=== PATIENT | male | born 1935 | race Two or more races ===

== ENCOUNTER 2020-04-03 09:56 | Inpatient (IN) | payer MEDICARE, OTHER ==
[~2020-04-03] VITALS: Ht 167.6 cm; Wt 66.5 kg
[2020-04-03 10:10] VITALS: BP 157/65
--- NOTE | 2020-04-03 10:10 | NUR ---
ED Nurse Note: Pt walked into ED using cane. Interpretor Keeley ID [id number] used. Per interpretor pt states Dr. Torrez asked pt to come in for labs for his prostate surgery scheduled for tommorrow 04/04/20." No complaints of pain, breathing even and unlabored, vital signs stable as documented.
--- NOTE | 2020-04-03 10:39 | Emergency Room Report ---
History of Present Illness General Chief Complaint: General Complaint Source: Patient Present Illness HPI This patient has a history of bladder cancer and his primary urologist is Dr. Naqvi. The patient is planned for surgical resection. He presents secondary to needing to be evaluated prior to his surgery early tomorrow. The patient himself has no specific complaints at this time. Allergies: Coded Allergies: No Known Allergies (Unverified , 04/03/20) COVID-19 Screening Contact w/high risk pt: No Experienced COVID-19 symptoms?: No COVID-19 Testing performed THEATRICAL VARIETY AGENT: No Patient History Past Medical History: see triage record, DM, HTN, other - bladder ca Social History: Denies: smoking, alcohol use, drug use Reviewed Nursing Documentation: PMH: Agreed; PSxH: Agreed Nursing Documentation-PMH Past Medical History: No History, Except For Hx Hypertension: Yes Hx Diabetes: Yes Review of Systems All Other Systems: negative except mentioned in HPI Physical Exam Vital Signs Date Time Temp Pulse Resp B/P (MAP) Pulse Ox O2 Delivery O2 Flow Rate FiO2 04/03/20 09:58 97.2 64 18 162/64 (96) 96 Room Air Sp02 EP Interpretation: reviewed, normal General Appearance: no apparent distress, alert, GCS 15, non-toxic Head: normocephalic, atraumatic Eyes: bilateral eye normal inspection, bilateral eye PERRL ENT: hearing grossly normal, normal pharynx, no angioedema, normal voice Neck: full range of motion, supple/symm/no masses Respiratory: chest non-tender, lungs clear, normal breath sounds, no respiratory distress, no retraction, no accessory muscle use, speaking full sentences Cardiovascular #1: regular rate, rhythm, no edema Gastrointestinal: normal bowel sounds, non tender, soft, non-distended, no guarding, no rebound Rectal: deferred Musculoskeletal: back normal, normal range of motion, gait/station normal, non- tender Neurologic: alert, motor strength/tone normal, oriented x3, sensory intact, responsive, speech normal Psychiatric: judgement/insight normal, memory normal, mood/affect normal, no suicidal/homicidal ideation Skin: no rash, normal color Medical Decision Making Diagnostic Impression: Primary Impression: Bladder cancer Additional Impressions: Hypernatremia Dehydration ER Course This patient has known bladder cancer and is admitted for surgical resection and further evaluation by urology. The patient underwent basic labs, chest x- ray and EKG for screening purposes for surgery. The patient had lab findings consistent with mild dehydration. He was given IV fluids. The patient remained stable in the emergency department and is admitted for further evaluation and treatment by urology and internal medicine. Laboratory Tests Test 04/03/20 10:45 04/03/20 11:50 White Blood Count 7.3 K/UL (4.8-10.8) Red Blood Count 4.55 M/UL (4.70-6.10) L Hemoglobin 13.3 G/DL (14.2-18.0) L Hematocrit 39.7 % (42.0-52.0) L Mean Corpuscular Volume 87 FL (80-99) Mean Corpuscular Hemoglobin 29.1 PG (27.0-31.0) Mean Corpuscular Hemoglobin Concent 33.3 G/DL (32.0-36.0) Red Cell Distribution Width 11.9 % (11.6-14.8) Platelet Count 272 K/UL (150-450) Mean Platelet Volume 5.8 FL (6.5-10.1) L Neutrophils (%) (Auto) 71.6 % (45.0-75.0) Lymphocytes (%) (Auto) 17.9 % (20.0-45.0) L Monocytes (%) (Auto) 7.9 % (1.0-10.0) Eosinophils (%) (Auto) 1.2 % (0.0-3.0) Basophils (%) (Auto) 1.3 % (0.0-2.0) Prothrombin Time 10.6 SEC (9.30-11.50) Prothrombin Time INR 1.0 (0.9-1.1) Activated Partial Thromboplast Time 25 SEC (23-33) Sodium Level 148 MMOL/L (136-145) H 147 MMOL/L (136-145) H Potassium Level 5.7 MMOL/L (3.5-5.1) H 5.4 MMOL/L (3.5-5.1) H Chloride Level 111 MMOL/L (98-107) H 110 MMOL/L (98-107) H Carbon Dioxide Level 27 MMOL/L (21-32) 28 MMOL/L (21-32) Anion Gap 10 mmol/L (5-15) 9 mmol/L (5-15) Blood Urea Nitrogen 11 mg/dL (7-18) 11 mg/dL (7-18) Creatinine 1.5 MG/DL (0.55-1.30) H 1.4 MG/DL (0.55-1.30) H Estimated Glomerular Filtration Rate 44.7 mL/min (>60) 48.4 mL/min (>60) Glucose Level 102 MG/DL (74-106) 103 MG/DL (74-106) Calcium Level 9.1 MG/DL (8.5-10.1) 8.8 MG/DL (8.5-10.1) Total Bilirubin 0.3 MG/DL (0.2-1.0) Aspartate Amino Transferase (AST) 20 U/L (15-37) Alanine Aminotransferase (ALT) 30 U/L (12-78) Alkaline Phosphatase 49 U/L (46-116) Total Protein 8.7 G/DL (6.4-8.2) H Albumin 4.3 G/DL (3.4-5.0) Globulin 4.4 g/dL Albumin/Globulin Ratio 1.0 (1.0-2.7) Microbiology Date/Time Source Procedure Growth Status 04/03/20 10:50 Nasopharynx SARS-CoV-2 RdRp Gene Assay - Final Complete Laboratory Tests Test 04/03/20 10:45 White Blood Count 7.3 K/UL (4.8-10.8) Red Blood Count 4.55 M/UL (4.70-6.10) L Hemoglobin 13.3 G/DL (14.2-18.0) L Hematocrit 39.7 % (42.0-52.0) L Mean Corpuscular Volume 87 FL (80-99) Mean Corpuscular Hemoglobin 29.1 PG (27.0-31.0) Mean Corpuscular Hemoglobin Concent 33.3 G/DL (32.0-36.0) Red Cell Distribution Width 11.9 % (11.6-14.8) Platelet Count 272 K/UL (150-450) Mean Platelet Volume 5.8 FL (6.5-10.1) L Neutrophils (%) (Auto) 71.6 % (45.0-75.0) Lymphocytes (%) (Auto) 17.9 % (20.0-45.0) L Monocytes (%) (Auto) 7.9 % (1.0-10.0) Eosinophils (%) (Auto) 1.2 % (0.0-3.0) Basophils (%) (Auto) 1.3 % (0.0-2.0) Prothrombin Time 10.6 SEC (9.30-11.50) Prothrombin Time INR 1.0 (0.9-1.1) Activated Partial Thromboplast Time 25 SEC (23-33) Sodium Level 148 MMOL/L (136-145) H Potassium Level 5.7 MMOL/L (3.5-5.1) H Chloride Level 111 MMOL/L (98-107) H Carbon Dioxide Level 27 MMOL/L (21-32) Anion Gap 10 mmol/L (5-15) Blood Urea Nitrogen 11 mg/dL (7-18) Creatinine 1.5 MG/DL (0.55-1.30) H Estimated Glomerular Filtration Rate 44.7 mL/min (>60) Glucose Level 102 MG/DL (74-106) Calcium Level 9.1 MG/DL (8.5-10.1) Total Bilirubin 0.3 MG/DL (0.2-1.0) Aspartate Amino Transferase (AST) 20 U/L (15-37) Alanine Aminotransferase (ALT) 30 U/L (12-78) Alkaline Phosphatase 49 U/L (46-116) Total Protein 8.7 G/DL (6.4-8.2) H Albumin 4.3 G/DL (3.4-5.0) Globulin 4.4 g/dL Albumin/Globulin Ratio 1.0 (1.0-2.7) EKG Diagnostic Results Rate: normal Rhythm: NSR ST Segments: no acute changes Other Impression LVH Rhythm Strip Diag. Results EP Interpretation: yes Rate: 60's Rhythm: NSR, no PVC's, no ectopy Chest X-Ray Diagnostic Results Chest X-Ray Diagnostic Results : Chest X-Ray Ordered: Yes # of Views/Limited/Complete: 1 View Indication: Other EP Interpretation: Yes Interpretation: no consolidation, no effusion, no pneumothorax, no acute cardiopulmonary disease, other - Possible mass/opacity Left upper lobe. Impression: No acute disease Electronically Signed by: Lindsey Giron DO Last Vital Signs Date Time Temp Pulse Resp B/P (MAP) Pulse Ox O2 Delivery O2 Flow Rate FiO2 04/03/20 10:10 97.0 66 18 157/65 96 Room Air Disposition: ADMITTED INPATIENT Condition: Stable Lindsey Giron DO Apr 03, 2020 10:39
--- NOTE | 2020-04-03 10:47 | NUR ---
ED Nurse Note: mail carrier technician at bedside performing CXR
--- NOTE | 2020-04-03 10:55 | NUR ---
ED Nurse Note: MD Ortiz at bedside discussing plan of care with pt.
--- NOTE | 2020-04-03 10:58 | NUR ---
ED Nurse Note: blood and COVID sent to lab
[2020-04-03 11:08] LABS: BASOPHILS % (AUTO) 1.3 % (0.0-2.0); EOSINOPHILS % (AUTO) 1.2 % (0.0-3.0); HEMATOCRIT 39.7 % (42.0-52.0); HEMOGLOBIN 13.3 G/DL (14.2-18.0); LYMPHOCYTES % (AUTO) 17.9 % (20.0-45.0); MEAN CORPUSCULAR VOLUME 87 FL (80-99); MONOCYTES % (AUTO) 7.9 % (1.0-10.0); NEUTROPHILS % (AUTO) 71.6 % (45.0-75.0); PLATELET COUNT 272 K/UL (150-450); RED BLOOD COUNT 4.55 M/UL (4.70-6.10); RED CELL DISTRIBUTION WIDTH 11.9 % (11.6-14.8); WHITE BLOOD COUNT 7.3 K/UL (4.8-10.8)
--- NOTE | 2020-04-03 11:15 | Diagnostic Imaging Report ---
Procedure: XRAY Chest 1v Reason for study: Shortness of breath. Comparison films: None. FINDINGS: A single one view chest is obtained. Vascularity is normal. There is some soft tissue prominence noted in the left hilar region. Question focal perihilar infiltrate versus underlying hilar adenopathy or mass. Cardiac and mediastinal silhouette are within normal limits. CP angles are sharp. The bony thorax appear unremarkable. IMPRESSION: Soft tissue prominence left hilar region. Question focal perihilar infiltrate versus underlying hilar adenopathy or mass. Recommend follow-up study after adequate treatment to reassess. If the density persists on follow-up, CT follow-up with IV contrast recommended.
[2020-04-03 11:19] LABS: CALCIUM 9.1 MG/DL (8.5-10.1); CREATININE 1.5 MG/DL (0.55-1.30); POTASSIUM 5.7 MMOL/L (3.5-5.1)
[2020-04-03 11:24] LABS: ALBUMIN 4.3 G/DL (3.4-5.0); BILIRUBIN,TOTAL 0.3 MG/DL (0.2-1.0)
[2020-04-03 12:00] VITALS: BP 153/71
--- NOTE | 2020-04-03 12:07 | NUR ---
ED Nurse Note: report given to FRANTZ Cobian in [facility].
[2020-04-03] MEDS ORDERED: HYDROCHLOROTHIA25 MG ORAL (12:08)
--- NOTE | 2020-04-03 12:14 | NUR ---
ED Nurse Note: pt transported to [facility] with SONIDO Salazar. Patient in stable condition. Vital signs stable as documented.
--- NOTE | 2020-04-03 12:20 | NUR ---
NURSE NOTES: Received report from FRANTZ Olivas (ED). Patient awake, alert and oriented x4. Yoruba speaking only. Patient safely transferred to unit via gurney. Currently on room air, no s/sx of SOB/Distress, no c/o any pain or gi/gu discomfort. IV line located RAC gauge 20. Head to toe assessment done, skin intact. All belongings checked and accounted for. Notified Dr. Ortiz for admission orders, still awaiting (Kiki) for home medication reconcilliation to be done. Bed placed on lowest and locked position, call light placed within reach and will continue to monitor.
[2020-04-03 12:28] LABS: CALCIUM 8.8 MG/DL (8.5-10.1); CREATININE 1.4 MG/DL (0.55-1.30); POTASSIUM 5.4 MMOL/L (3.5-5.1)
--- NOTE | 2020-04-03 13:30 | NUR ---
NURSE NOTES: BP slightly elevated at 198/61 and heart rate at 62. Dr. Ortiz notified, order for clonidine 0.1mg PO Q6 PRN for SBP >150. Order read back and carried out.
--- NOTE | 2020-04-03 14:59 | History and Physical Report ---
DATE OF ADMISSION: 04/03/2020 REASON FOR ADMISSION: Hematuria. HISTORY OF PRESENT ILLNESS: This is an 84-year-old male, who is a very poor historian and speaks only Persian. He came to the hospital with complaints of ongoing hematuria. The patient is scheduled in the near future for resection. However, he was urgently evaluated because of ongoing hematuria. PAST MEDICAL HISTORY: Diabetes mellitus, hypertension, bladder carcinoma. SOCIAL HISTORY: Denies alcohol or tobacco usage. PREVIOUS SURGERIES: None. HOME MEDICATIONS: The patient is not completely certain, however, it appears that he is taking aspirin, Uroxatral, an unknown antihypertensive. He does not recall any medications for diabetes. REVIEW OF SYSTEMS: Denies any headaches, hematemesis, melena, hematochezia, night sweats or weight loss. He admits to having hematuria. PHYSICAL EXAMINATION: VITAL SIGNS: Blood pressure 150/70, heart rate 68, respirations , afebrile, O2 saturation 98% on room air. GENERAL: Reveals an 84-year-old male. HEENT: Unremarkable. CHEST: Clear breath sounds bilaterally. ABDOMEN: Soft. EXTREMITIES: There is no edema. NEUROLOGIC: Nonfocal. LABORATORY AND DIAGNOSTIC DATA: Lab testing shows hemoglobin 13.3, otherwise normal CBC. His BMP notable for potassium 5.4, sodium 147, chloride 110, creatinine 1.4. Coags normal. X-ray chest obtained today shows soft tissue prominence left hilar region. This could represent adenopathy. EKG has been obtained is also pending. IMPRESSION: 1. Hypertension. 2. Diabetes mellitus. 3. Bladder CA with hematuria. 4. Left hilar mass. DISCUSSION: Admit to the hospital. We will initiate IV fluids. Continue home medications. Keep NPO after midnight. Cardiac diet. Check labs in the morning. Start IV normal saline. Discontinue any potassium containing products. Jostin Ortiz M.D. DR: CHITRA JOB#: [id number] CC:
[2020-04-03 16:00] VITALS: BP 104/61
--- NOTE | 2020-04-03 16:00 | Consultation ---
History of Present Illness General Date patient seen: Apr 03, 2020 Time patient seen: 15:53 Chief Complaint: General Complaint Present Illness HPI Patient presents with blood in urine, awaiting surgery but due to worsening hematuria he came to ER. He was noted to have elevated BP. He is poorly compliant with medications and can not recall the names. No fevers no chest pain no sob no sick contacts. He has a hx of HTN and DM as well. Labs showed hyperkalemia and hypernatremaia. CXR showed a hilar mass. Allergies: Coded Allergies: No Known Allergies (Unverified , 04/03/20) Medication History Discontinued Medications Hydrochlorothiazide* (Hydrochlorothiazide*), 25 MG ORAL DAILY, (Reported) Discontinued Reason: Pt stopped taking med Patient History Healthcare decision maker Resuscitation status Advanced Directive on File Review of Systems Constitutional: Reports: no symptoms Eye: Reports: no symptoms ENT: Reports: no symptoms Respiratory: Reports: no symptoms Cardiovascular: Reports: no symptoms Gastrointestinal: Reports: no symptoms Genitourinary: Reports: hematuria Musculoskeletal: Reports: no symptoms Skin: Reports: no symptoms Psychiatric: Reports: no symptoms Neurological: Reports: no symptoms Endocrine: Reports: no symptoms Hematologic/Lymphatic: Reports: no symptoms Physical Exam General Appearance: no apparent distress, alert Lines, tubes and drains: peripheral HEENT: normocephalic, atraumatic, anicteric, mucous membranes moist, PERRL Neck: non-tender, normal alignment, supple, normal inspection Respiratory/Chest: chest wall non-tender, lungs clear, normal breath sounds, no respiratory distress, no accessory muscle use Cardiovascular/Chest: normal peripheral pulses, normal rate, regular rhythm Abdomen: normal bowel sounds, non tender, soft, no organomegaly, no mass Extremities: normal range of motion, non-tender, normal inspection, no calf tenderness, normal capillary refill, non-pitting Neurologic: branch lead II-XII grossly normal, no motor/sensory deficits Last 24 Hour Vital Signs Date Time Temp Pulse Resp B/P (MAP) Pulse Ox O2 Delivery O2 Flow Rate FiO2 04/03/20 13:49 183/78 04/03/20 12:14 97.3 68 18 153/71 98 Room Air 04/03/20 12:00 97.3 68 18 153/71 98 Room Air 04/03/20 10:10 97.0 66 18 157/65 96 Room Air 04/03/20 10:10 66 18 Room Air 04/03/20 09:58 97.2 64 18 162/64 (96) 96 Room Air Laboratory Tests Test 04/03/20 10:45 04/03/20 11:50 White Blood Count 7.3 K/UL (4.8-10.8) Red Blood Count 4.55 M/UL (4.70-6.10) L Hemoglobin 13.3 G/DL (14.2-18.0) L Hematocrit 39.7 % (42.0-52.0) L Mean Corpuscular Volume 87 FL (80-99) Mean Corpuscular Hemoglobin 29.1 PG (27.0-31.0) Mean Corpuscular Hemoglobin Concent 33.3 G/DL (32.0-36.0) Red Cell Distribution Width 11.9 % (11.6-14.8) Platelet Count 272 K/UL (150-450) Mean Platelet Volume 5.8 FL (6.5-10.1) L Neutrophils (%) (Auto) 71.6 % (45.0-75.0) Lymphocytes (%) (Auto) 17.9 % (20.0-45.0) L Monocytes (%) (Auto) 7.9 % (1.0-10.0) Eosinophils (%) (Auto) 1.2 % (0.0-3.0) Basophils (%) (Auto) 1.3 % (0.0-2.0) Prothrombin Time 10.6 SEC (9.30-11.50) Prothromb Time International Ratio 1.0 (0.9-1.1) Activated Partial Thromboplast Time 25 SEC (23-33) Sodium Level 148 MMOL/L (136-145) H 147 MMOL/L (136-145) H Potassium Level 5.7 MMOL/L (3.5-5.1) H 5.4 MMOL/L (3.5-5.1) H Chloride Level 111 MMOL/L (98-107) H 110 MMOL/L (98-107) H Carbon Dioxide Level 27 MMOL/L (21-32) 28 MMOL/L (21-32) Anion Gap 10 mmol/L (5-15) 9 mmol/L (5-15) Blood Urea Nitrogen 11 mg/dL (7-18) 11 mg/dL (7-18) Creatinine 1.5 MG/DL (0.55-1.30) H 1.4 MG/DL (0.55-1.30) H Estimat Glomerular Filtration Rate 44.7 mL/min (>60) 48.4 mL/min (>60) Glucose Level 102 MG/DL (74-106) 103 MG/DL (74-106) Calcium Level 9.1 MG/DL (8.5-10.1) 8.8 MG/DL (8.5-10.1) Total Bilirubin 0.3 MG/DL (0.2-1.0) Aspartate Amino Transf (AST/SGOT) 20 U/L (15-37) Alanine Aminotransferase (ALT/SGPT) 30 U/L (12-78) Alkaline Phosphatase 49 U/L (46-116) Total Protein 8.7 G/DL (6.4-8.2) H Albumin 4.3 G/DL (3.4-5.0) Globulin 4.4 g/dL Albumin/Globulin Ratio 1.0 (1.0-2.7) Microbiology Date/Time Source Procedure Growth Status 04/03/20 10:50 Nasopharynx SARS-CoV-2 RdRp Gene Assay - Final Complete Height (Feet): 5 Height (Inches): 6.00 Weight (Pounds): 140 Medications Current Medications Medications (Trade) Dose Ordered Sig/Isaac Route PRN Reason Start Time Stop Time Status Last Admin Dose Admin Aspirin (Ecotrin) 81 mg DAILY ORAL 04/04/20 09:00 05/19/20 08:59 Clonidine HCl (Catapres Tab) 0.1 mg Q6H PRN ORAL hypertension 04/03/20 13:45 07/02/20 13:44 04/03/20 13:49 Sodium Chloride 1,000 ml @ 50 mls/hr Q20H IV 04/03/20 14:00 05/03/20 13:59 04/03/20 15:02 Assessment/Plan Status: stable Assessment/Plan: Assessment: 1. Hypertension. 2. Diabetes mellitus. 3. Bladder CA with hematuria. 4. Left hilar mass. 5. Hyperkalemia/hypernatremia Plan: 1) DASH diet 2) IV fulids 3) Monitor electrolytes 4) Urology evaluation for hematuria 5) Echocardiogram for risk stratification 6) Monitor electrolytes and kidney function 7) Resume home anti hypertensives 8) Surgical Clearance pending further test results Juan Conti MD Apr 03, 2020 16:00
--- NOTE | 2020-04-03 19:47 | NUR ---
NURSE HAND-OFF: Important Events on Shift:admission, for Bladder tumor resection 04/04/2020 (Consent obtained) Patient Status:stable Diet: cardiac diet, NPO at midnight Pending Orders: n/a Pending Results/Labs:n/a Pending MD notification:n/a Latest Vital Signs: Temperature 96.7 , Pulse 64 , B/P 104 /61 , Respiratory Rate 21 , O2 SAT 97 , Room Air, O2 Flow Rate . Vital Sign Comment: stable Latest Godinez Fall Score: 35 Fall Risk: Medium Risk Safety Measures: Call light , Bed Alarm Zone 1, Side Rails Side Rails x2, Bed position Low and Locked. Fall Precautions: Yellow Socks Yellow Gown Door Sign Patient Fall Education Report given to raúl Acosta.
[2020-04-03 20:00] VITALS: BP 136/59
--- NOTE | 2020-04-03 20:00 | NUR ---
NURSE NOTES: Patient received in bed, aox4. No acute distress at this time. Patient deferred reproductive assessment at this time. Patient does not want to take pants off and independently goes to the restroom with cane and closed doors. No complaints at this time. Call light in reach.
[2020-04-03] MEDS: Tamsulosin 0.4mg cap ORAL SCH (20:30)
[2020-04-03] MEDS: D5 1/2NS 1,000 ML IV SCH (22:33)
[2020-04-03 23:51] VITALS: BP 129/65
[2020-04-04] VITALS (14 sets, daily range): BP systolic 67–182; BP diastolic 62–78
[2020-04-04 07:17] LABS: CALCIUM 7.9 MG/DL (8.5-10.1); CREATININE 1.3 MG/DL (0.55-1.30); POTASSIUM 4.6 MMOL/L (3.5-5.1)
--- NOTE | 2020-04-04 07:26 | NUR ---
NURSE HAND-OFF: Important Events on Shift:[changed IVF to D51/2NS at 75] Patient Status: [sleeping] Diet: [NPO p midnight for surgery] Pending Orders: [for bladder tumor resection today, time-TF] Pending Results/Labs:[] Pending MD notification:[] Latest Vital Signs: Temperature 97.3 , Pulse 55 , B/P 120 /67 , Respiratory Rate 18 , O2 SAT 98 , Room Air, O2 Flow Rate . Vital Sign Comment: [stable] Latest Godinez Fall Score: 45 Fall Risk: High Risk Safety Measures: Call light Within Reach, Bed Alarm Zone 1, Side Rails Side Rails x2, Bed position Low and Locked. Fall Precautions: Yellow Socks Yellow Gown Door Sign Patient Fall Education Report given to [Nazia LANDRY].
--- NOTE | 2020-04-04 07:37 | NUR ---
NURSE NOTES: Received report from FRANTZ Acosta. Patient observed to be asleep. Currently on room air, no s/sx of SOB/Distress. No s/sx of any pain observed. Currently on NPO. For bladder tumor resection today. IV site located on RAC g20, asymptomatic, inplace and intact. Running D5 1/2 at 75ml. Bed placed on lowest and locked position, call light placed within reach and will continue to monitor.
--- NOTE | 2020-04-04 08:07 | Pre-Procedure Note/Attestation ---
Pre-Procedure Note/Attestation Complete Prior to Procedure Planned Procedure: not applicable Procedure Narrative: TURBT RPG Indications for Procedure Pre-Operative Diagnosis: bladder cancer Attestation I attest that I discussed the nature of the procedure; its benefits; risks and complications; and alternatives (and the risks and benefits of such alternatives), prior to the procedure, with the patient (or the patient's legal field sales representative). I attest that, if there was a reasonable possibility of needing a blood transfusion, the patient (or the patient's legal field sales representative) was given the [facility] standardized written summary, pursuant to the Umair Marielos Blood Safety Act ([place] Health and Safety Code # 1645, as amended). I attest that I re-evaluated the patient just prior to the surgery and that there has been no change in the patient's H&P, except as documented below: Pramod Naqvi MD Apr 04, 2020 08:07
[2020-04-04] MEDS ORDERED: Irbesartan 150mg tablet ORAL SCH (09:00)
[2020-04-04] MEDS: carBAMazepine XR 200mg tab ORAL SCH (09:00)
[2020-04-04] MEDS ORDERED: Aspirin EC 81mg tab ORAL SCH (09:00)
--- NOTE | 2020-04-04 09:16 | Consultation ---
History of Present Illness General Chief Complaint: General Complaint Reason for Consultation: electrolyte derangement Present Illness HPI Patient presents with blood in urine, awaiting surgery but due to worsening hematuria he came to ER. He was noted to have elevated BP. He is poorly compliant with medications and can not recall the names. No fevers no chest pain no sob no sick contacts. He has a hx of HTN and DM as well. Labs showed hyperkalemia and hypernatremaia. CXR showed a hilar mass. Allergies: Coded Allergies: No Known Allergies (Unverified , 04/03/20) Medication History Discontinued Medications Hydrochlorothiazide* (Hydrochlorothiazide*), 25 MG ORAL DAILY, (Reported) Discontinued Reason: Pt stopped taking med Patient History Healthcare decision maker Resuscitation status Advanced Directive on File Review of Systems All Other Systems: negative except mentioned in HPI Physical Exam General Appearance: no apparent distress, alert Lines, tubes and drains: peripheral HEENT: normocephalic, atraumatic Neck: non-tender Respiratory/Chest: chest wall non-tender Cardiovascular/Chest: normal peripheral pulses, normal rate, regular rhythm Abdomen: normal bowel sounds, non tender, soft Extremities: non-tender Last 24 Hour Vital Signs Date Time Temp Pulse Resp B/P (MAP) Pulse Ox O2 Delivery O2 Flow Rate FiO2 04/04/20 08:00 97.3 58 18 114/75 (88) 98 04/04/20 04:00 97.3 55 18 120/67 (84) 98 04/03/20 23:51 96.9 56 21 129/65 (86) 96 04/03/20 21:00 Room Air 04/03/20 20:00 97.9 84 21 136/59 (84) 97 04/03/20 16:00 96.7 64 21 104/61 (75) 97 04/03/20 14:39 Room Air 04/03/20 13:49 183/78 04/03/20 12:14 97.3 68 18 153/71 98 Room Air 04/03/20 12:00 97.3 68 18 153/71 98 Room Air 04/03/20 10:10 97.0 66 18 157/65 96 Room Air 04/03/20 10:10 66 18 Room Air 04/03/20 09:58 97.2 64 18 162/64 (96) 96 Room Air Intake and Output0 04/03/20 04/04/20 19:00 07:00 Intake Total 170 ml 850 ml Output Total 1400 ml Balance -1230 ml 850 ml Intake Oral 120 ml 100 ml IV Total 50 ml 750 ml Output Urine Total 1400 ml # Voids 3 4 Laboratory Tests Test 04/03/20 10:45 04/03/20 11:50 04/04/20 05:40 White Blood Count 7.3 K/UL (4.8-10.8) Red Blood Count 4.55 M/UL (4.70-6.10) L Hemoglobin 13.3 G/DL (14.2-18.0) L Hematocrit 39.7 % (42.0-52.0) L Mean Corpuscular Volume 87 FL (80-99) Mean Corpuscular Hemoglobin 29.1 PG (27.0-31.0) Mean Corpuscular Hemoglobin Concent 33.3 G/DL (32.0-36.0) Red Cell Distribution Width 11.9 % (11.6-14.8) Platelet Count 272 K/UL (150-450) Mean Platelet Volume 5.8 FL (6.5-10.1) L Neutrophils (%) (Auto) 71.6 % (45.0-75.0) Lymphocytes (%) (Auto) 17.9 % (20.0-45.0) L Monocytes (%) (Auto) 7.9 % (1.0-10.0) Eosinophils (%) (Auto) 1.2 % (0.0-3.0) Basophils (%) (Auto) 1.3 % (0.0-2.0) Prothrombin Time 10.6 SEC (9.30-11.50) Prothromb Time International Ratio 1.0 (0.9-1.1) Activated Partial Thromboplast Time 25 SEC (23-33) Sodium Level 148 MMOL/L (136-145) H 147 MMOL/L (136-145) H 145 MMOL/L (136-145) Potassium Level 5.7 MMOL/L (3.5-5.1) H 5.4 MMOL/L (3.5-5.1) H 4.6 MMOL/L (3.5-5.1) Chloride Level 111 MMOL/L (98-107) H 110 MMOL/L (98-107) H 110 MMOL/L (98-107) H Carbon Dioxide Level 27 MMOL/L (21-32) 28 MMOL/L (21-32) 25 MMOL/L (21-32) Anion Gap 10 mmol/L (5-15) 9 mmol/L (5-15) 10 mmol/L (5-15) Blood Urea Nitrogen 11 mg/dL (7-18) 11 mg/dL (7-18) 12 mg/dL (7-18) Creatinine 1.5 MG/DL (0.55-1.30) H 1.4 MG/DL (0.55-1.30) H 1.3 MG/DL (0.55-1.30) Estimat Glomerular Filtration Rate 44.7 mL/min (>60) 48.4 mL/min (>60) 52.7 mL/min (>60) Glucose Level 102 MG/DL (74-106) 103 MG/DL (74-106) 104 MG/DL (74-106) Calcium Level 9.1 MG/DL (8.5-10.1) 8.8 MG/DL (8.5-10.1) 7.9 MG/DL (8.5-10.1) L Total Bilirubin 0.3 MG/DL (0.2-1.0) Aspartate Amino Transf (AST/SGOT) 20 U/L (15-37) Alanine Aminotransferase (ALT/SGPT) 30 U/L (12-78) Alkaline Phosphatase 49 U/L (46-116) Total Protein 8.7 G/DL (6.4-8.2) H Albumin 4.3 G/DL (3.4-5.0) Globulin 4.4 g/dL Albumin/Globulin Ratio 1.0 (1.0-2.7) Microbiology Date/Time Source Procedure Growth Status 04/03/20 10:50 Nasopharynx SARS-CoV-2 RdRp Gene Assay - Final Complete Height (Feet): 5 Height (Inches): 6.00 Weight (Pounds): 140 Medications Current Medications Medications (Trade) Dose Ordered Sig/Isaac Route PRN Reason Start Time Stop Time Status Last Admin Dose Admin Amlodipine Besylate (Norvasc) 10 mg DAILY ORAL 04/04/20 09:00 05/04/20 08:59 Carbamazepine (TEGretol XR) 200 mg DAILY ORAL 04/04/20 09:00 05/04/20 08:59 Clonidine HCl (Catapres Tab) 0.1 mg Q6H PRN ORAL hypertension 04/03/20 13:45 07/02/20 13:44 04/03/20 13:49 Dextrose/Sodium Chloride 1,000 ml @ 75 mls/hr [id number] IV 04/03/20 22:15 05/03/20 22:14 04/03/20 22:33 Tamsulosin HCl (Flomax) 0.4 mg BEDTIME ORAL 04/03/20 21:00 05/03/20 20:59 04/03/20 20:30 Assessment/Plan Diagnosis [place]: #ABDIRAHMAN- due to pre-renal azotemia #hypernatremia #Hyperkalemia #HTN #DM #hematuria - IVF - flomax -amlodipine 10mg daily - clonidine prn - urology eval - plan for cystoscopy - monitor lytes - hold hctz - avoid nephrotoxins - monitor UOP - BG control - monitor BP Ander Baxter M.D. Apr 04, 2020 09:16
--- NOTE | 2020-04-04 10:26 | Pulmonology Progress Note ---
Subjective Interval Events: None new; for OR today Constitutional: Reports: no symptoms HEENT: Repors: no symptoms Respiratory: Reports: no symptoms Cardiovascular: Reports: no symptoms Gastrointestinal/Abdominal: Reports: no symptoms Allergies: Coded Allergies: No Known Allergies (Unverified , 04/03/20) Objective Last 24 Hour Vital Signs Date Time Temp Pulse Resp B/P (MAP) Pulse Ox O2 Delivery O2 Flow Rate FiO2 04/04/20 08:00 97.3 58 18 114/75 (88) 98 04/04/20 04:00 97.3 55 18 120/67 (84) 98 04/03/20 23:51 96.9 56 21 129/65 (86) 96 04/03/20 21:00 Room Air 04/03/20 20:00 97.9 84 21 136/59 (84) 97 04/03/20 16:00 96.7 64 21 104/61 (75) 97 04/03/20 14:39 Room Air 04/03/20 13:49 183/78 04/03/20 12:14 97.3 68 18 153/71 98 Room Air 04/03/20 12:00 97.3 68 18 153/71 98 Room Air Intake and Output 04/03/20 04/04/20 19:00 07:00 Intake Total 170 ml 850 ml Output Total 1400 ml Balance -1230 ml 850 ml Intake Oral 120 ml 100 ml IV Total 50 ml 750 ml Output Urine Total 1400 ml # Voids 3 4 General Appearance: no acute distress HEENT: normocephalic Respiratory: chest wall non-tender, lungs clear Cardiovascular: normal peripheral pulses, normal rate Abdomen: normal bowel sounds Extremities: no cyanosis Microbiology Date/Time Source Procedure Growth Status 04/03/20 10:50 Nasopharynx SARS-CoV-2 RdRp Gene Assay - Final Complete Laboratory Tests 04/03/20 10:45: White Blood Count 7.3, Red Blood Count 4.55L, Hemoglobin 13.3L, Hematocrit 39.7L , Mean Corpuscular Volume 87, Mean Corpuscular Hemoglobin 29.1, Mean Corpuscular Hemoglobin Concent 33.3, Red Cell Distribution Width 11.9, Platelet Count 272, Mean Platelet Volume 5.8L, Neutrophils (%) (Auto) 71.6, Lymphocytes (%) (Auto) 17.9L, Monocytes (%) (Auto) 7.9, Eosinophils (%) (Auto) 1.2, Basophils (%) (Auto) 1.3, Prothrombin Time 10.6, Prothromb Time International Ratio 1.0, Activated Partial Thromboplast Time 25, Sodium Level 148H, Potassium Level 5.7H, Chloride Level 111H, Carbon Dioxide Level 27, Anion Gap 10, Blood Urea Nitrogen 11, Creatinine 1.5H, Estimat Glomerular Filtration Rate 44.7, Glucose Level 102, Calcium Level 9.1, Total Bilirubin 0.3, Aspartate Amino Transf (AST/SGOT) 20, Alanine Aminotransferase (ALT/SGPT) 30, Alkaline Phosphatase 49, Total Protein 8.7H, Albumin 4.3, Globulin 4.4, Albumin/Globulin Ratio 1.0 04/03/20 11:50: Sodium Level 147H, Potassium Level 5.4H, Chloride Level 110H, Carbon Dioxide Level 28, Anion Gap 9, Blood Urea Nitrogen 11, Creatinine 1.4H, Estimat Glomerular Filtration Rate 48.4, Glucose Level 103, Calcium Level 8.8 04/04/20 05:40: Sodium Level 145, Potassium Level 4.6, Chloride Level 110H, Carbon Dioxide Level 25, Anion Gap 10, Blood Urea Nitrogen 12, Creatinine 1.3, Estimat Glomerular Filtration Rate 52.7, Glucose Level 104, Calcium Level 7.9L Current Medications Medications (Trade) Dose Ordered Sig/Isaac Route PRN Reason Start Time Stop Time Status Last Admin Dose Admin Amlodipine Besylate (Norvasc) 10 mg DAILY ORAL 04/04/20 09:00 05/04/20 08:59 Carbamazepine (TEGretol XR) 200 mg DAILY ORAL 04/04/20 09:00 05/04/20 08:59 Clonidine HCl (Catapres Tab) 0.1 mg Q6H PRN ORAL hypertension 04/03/20 13:45 07/02/20 13:44 04/03/20 13:49 Dextrose/Sodium Chloride 1,000 ml @ 75 mls/hr [id number] IV 04/03/20 22:15 05/03/20 22:14 04/03/20 22:33 Tamsulosin HCl (Flomax) 0.4 mg BEDTIME ORAL 04/03/20 21:00 05/03/20 20:59 04/03/20 20:30 Assessment/Plan Assessment/Plan IMPRESSION: 1. Hypertension. 2. Diabetes mellitus. 3. Bladder CA with hematuria. 4. Left hilar mass. DISCUSSION: Continue IV fluids. Continue home medications. Check labs in the morning. For surgery today Discontinue any potassium containing products. Noted nephrology and cardiology evaluations Jostin Ortiz M.D. Jostin Ortiz MD Apr 04, 2020 10:26
[2020-04-04] MEDS: D5 1/2NS 1,000 ML IV SCH (11:42)
[2020-04-04] MEDS ORDERED: Metoclopramide 10mg/2ml Inj IVP PRN (12:15)
[2020-04-04] MEDS ORDERED: HYDROcodone/Acetamin 7.5/325 tab ORAL PRN (12:15)
[2020-04-04] MEDS ORDERED: Meperidine 25mg/0.5ml Inj (FOR RIGORS ONLY) IV PRN (12:15)
[2020-04-04] MEDS ORDERED: Hydromorphone 0.5mg/0.5ml inj IVP PRN (12:15)
[2020-04-04] MEDS ORDERED: oxyCODONE HCL/Acetaminophen 5/325mg ORAL PRN (12:15)
[2020-04-04] MEDS ORDERED: LORazepam Inj 2mg/ml 1ml IV PRN (12:15)
[2020-04-04] MEDS ORDERED: Ketorolac 30mg Inj IV PRN ×2 (12:15)
[2020-04-04] MEDS ORDERED: HYDROcodone/Acetamin 5/325 tab ORAL PRN (12:15)
[2020-04-04] MEDS ORDERED: LR 1000ml 1,000 ML IVLG SCH (12:15)
[2020-04-04] MEDS ORDERED: fentaNYL 100 mcg/2 mL IV PRN (12:15)
[2020-04-04] MEDS ORDERED: Atropine Sulfate 0.4mg/ml inj IVP PRN (12:15)
[2020-04-04] MEDS ORDERED: Acetaminophen (Non formulary) 100 ML IV ONE (12:15)
[2020-04-04] MEDS ORDERED: DiphenhydrAMINE 50mg/ml Inj IVP PRN (12:15)
[2020-04-04] MEDS ORDERED: Midazolam 2mg/2ml Inj IVP PRN (12:15)
--- NOTE | 2020-04-04 12:22 | Anethesia Preoperative Eval ---
Anesthesia Pre-op PMH/ROS General Date of Evaluation: Apr 04, 2020 Time of Evaluation: 14:19 Anesthesiologist: Loida ASA Score: ASA 3 Mallampati Score Class I : Soft palate, uvula, fauces, pillars visible Class II: Soft palate, uvula, fauces visible Class III: Soft palate, base of uvula visible Class IV: Only hard plate visible Mallampati Classification: Class II Surgeon: Donya Diagnosis: Bladder Tumor Surgical Procedure: TURBT Anesthesia History: none Family History: no anesthesia problems Allergies: Coded Allergies: No Known Allergies (Unverified , 04/03/20) Medications: see eMAR Patient NPO?: Yes Past Medical History Cardiovascular: Reports: HTN Gastrointestinal/Genitourinary: Reports: other - Bladder CA Neurologic/Psychiatric: Reports: other - Seizures Endocrine: Reports: DM Anesthesia Pre-op Phys. Exam Physician Exam Last Vital Signs Date Time Temp Pulse Resp B/P (MAP) Pulse Ox O2 Delivery O2 Flow Rate FiO2 04/04/20 09:00 Room Air 04/04/20 08:00 97.3 58 18 114/75 (88) 98 Constitutional: NAD Neurologic: CN 2-12 intact Cardiovascular: RRR Respiratory: CTA Gastrointestinal: S/NT/ND Airway Exam Mallampati Score: Class II MO: limited ROM: limited Teeth: missing Anesthesia Pre-op A/P Labs Chemistry Test 04/04/20 05:40 Sodium Level 145 MMOL/L (136-145) Potassium Level 4.6 MMOL/L (3.5-5.1) Chloride Level 110 MMOL/L (98-107) H Carbon Dioxide Level 25 MMOL/L (21-32) Anion Gap 10 mmol/L (5-15) Blood Urea Nitrogen 12 mg/dL (7-18) Creatinine 1.3 MG/DL (0.55-1.30) Estimat Glomerular Filtration Rate 52.7 mL/min (>60) Glucose Level 104 MG/DL (74-106) Calcium Level 7.9 MG/DL (8.5-10.1) L Risk Assessment & Plan Assessment: ASA 3 Plan: GA, SED, GlideScope Status Change Before Surgery: No Pre-Antibiotics Dru Gram Ancef IV Given Within 1 Hr of Incision: Yes Jevon Mariscal MD Apr 04, 2020 12:22
--- NOTE | 2020-04-04 12:24 | Immediate Post-Op Evaluation ---
Immediate Post-Op Evalulation Immediate Post-Op Evalulation Procedure: TURBT Date of Evaluation: Apr 04, 2020 Time of Evaluation: 15:40 IV Fluids: 700 LR Blood Products: 0 Estimated Blood Loss: 100 Urinary Output: 0 Blood Pressure Systolic: 180 Blood Pressure Diastolic: 72 Pulse Rate: 58 Respiratory Rate: 16 O2 Sat by Pulse Oximetry: 100 Temperature (Fahrenheit): 96.8 Pain Score (1-10): 2 Nausea: No Vomiting: No Complications 0 Patient Status: awake, reacts, patent, extubated, none Hydration Status: adequate Dru Gram Ancef IV Given Within 1 Hr of Incision: Yes Time Given: 14:26 Jevon Mariscal MD Apr 04, 2020 12:24
--- NOTE | 2020-04-04 12:31 | NUR ---
NURSE NOTES: Patient picked up at 1220 for procedure of Bladder Tumor Resection. Patient in stable condition transferred via bed. All belongings left in room will give report to nurse in 3E.
[2020-04-04] MEDS ORDERED: Iothalamate Meglumine 60% 30ML INJ ONE (12:43)
[2020-04-04] MEDS ORDERED: Midazolam 2mg/2ml Inj ONE (12:47)
--- NOTE | 2020-04-04 13:18 | NUR ---
CASE MANAGEMENT:INITIAL REVIEW 84 YR OLD MALE FROM HOME FOR PLANNED SURGERY CC;BLADDER TUMOR SI;OPERATIVE DAY ~ TURBT (TRANSURETHRAL RESECTION OF BLADDER TUMOR W/BILAT RETROGRADE PYELOGRAM) 97.8 55 21 147/71 96% ON RA CA 7.9 IS;IVF D5W @ 75 ML/HR TORADOL IV Q1 PRN MED SURG STATUS DCP;FROM HOME
[2020-04-04] MEDS ORDERED: Rocuronium Bromide 50mg/5ml Inj IV ONE (13:47)
[2020-04-04] MEDS ORDERED: LR 1000ml ONE (14:00)
[2020-04-04] MEDS ORDERED: Lidocaine 1% MPF 10mg/ml 5ml ONE (14:14)
[2020-04-04] MEDS ORDERED: fentaNYL 100 mcg/2 mL IV ONE (14:14)
[2020-04-04] MEDS ORDERED: Ketamine 500mg/10ml vial ONE (14:14)
[2020-04-04] MEDS ORDERED: Glycopyrrolate 0.2mg/ml 1ml Vial ONE ×2 (14:32→15:08)
[2020-04-04] MEDS ORDERED: NS Irrig 4000ml IRRIG ONE (15:06)
[2020-04-04] MEDS ORDERED: Neostigmine 1mg/ml 10ml Inj ONE (15:08)
[2020-04-04] MEDS ORDERED: Sugammadex Sodium 200mg/2ml vial IV ONE (15:16)
--- NOTE | 2020-04-04 15:36 | Diagnostic Imaging Report ---
Retrograde Pyelogram CLINICAL HISTORY: Reason For Exam: MASS. COMPARISON: None FINDINGS: Fluoroscopy independent procedure performed for reported retrograde pyelogram. 26.2 seconds of fluoroscopy time utilized by the ordering physician. Total cumulative dose is 4.31 mGy and 0.29672 mGym2. Total of 7 spot images are obtained. IMPRESSION: FLUOROSCOPY GUIDED PROCEDURE. PLEASE SEE PROCEDURAL/OPERATIVE REPORT.
--- NOTE | 2020-04-04 16:17 | Cardiology Report ---
APPROVED REPORT EXAM: Two-dimensional and M-mode echocardiogram with Doppler and color Doppler. INDICATION Left ventricular function M-Mode DIMENSIONS IVSd0.9 (0.7-1.1cm)Left Atrium (MM)3.6 (1.6-4.0cm) LVDd5.0 (3.5-5.6cm)Aortic Root3.4 (2.0-3.7cm) PWd0.9 (0.7-1.1cm)Aortic Cusp Exc.1.3 (1.5-2.0cm) IVSs1.3 cmEPSS0.5 (>1.0cm) LVDs3.2 (2.5-4.0cm) PWs1.9 cm <Conclusion> Technically difficult study due to poor acoustic windows. Study quality precludes accurate assessment of regional wall motion. Normal left ventricular chamber size, systolic function and wall motion to extent visualized. Left ventricular ejection fraction estimated to be 65%. No evidence of left ventricular hypertrophy. Anterior Echo-free space, may be due to pericardial fat or effusion. All other cardiac chamber sizes are within normal limits. Moderate focal aortic valve sclerosis with reduced cusp excursion. Thickened mitral valve leaflets with normal excursion. Mitral annulus and aortic root calcification. Pulmonic valve not well visualized. Normal tricuspid valve structure. IVC measured at 2.0 cm with physiological collapse. A color flow and spectral Doppler study was performed and revealed: Mild aortic regurgitation. Peak aortic valve gradient of 22 mmHg and a mean of 13 mmHg. Aortic valve area 1.7 cm2 calculated by continuity equation. Mild mitral regurgitation. Normal left ventricular diastolic function. Mild tricuspid regurgitation. Tricuspid systolic velocities suggests peak right ventricular systolic pressure of 38 mmHg, consistent with mild pulmonary hypertension.
--- NOTE | 2020-04-04 16:31 | Cardiology Report ---
APPROVED REPORT EKG Measurement Heart [id number] <Conclusion> Normal sinus rhythm Left ventricular hypertrophy with repolarization abnormality Abnormal ECG
--- NOTE | 2020-04-04 16:58 | Cardiology Progress Note ---
Assessment/Plan Status: stable Assessment/Plan Assessment/Plan Status: stable Assessment/Plan: Assessment: 1. Hypertension. 2. Diabetes mellitus. 3. Bladder CA with hematuria. 4. Left hilar mass. 5. Hyperkalemia/hypernatremia Plan: 1) DASH diet 2) IV fulids 3) Monitor electrolytes 4) Urology evaluation for hematuria 5) Echocardiogram for risk stratification with normal LV function 6) Monitor electrolytes and kidney function 7) Resume home anti hypertensives Technically difficult study due to poor acoustic windows. Study quality precludes accurate assessment of regional wall motion. Normal left ventricular chamber size, systolic function and wall motion to extent visualized. Left ventricular ejection fraction estimated to be 65%. No evidence of left ventricular hypertrophy. Anterior Echo-free space, may be due to pericardial fat or effusion. All other cardiac chamber sizes are within normal limits. Moderate focal aortic valve sclerosis with reduced cusp excursion. Thickened mitral valve leaflets with normal excursion. Mitral annulus and aortic root calcification. Pulmonic valve not well visualized. Normal tricuspid valve structure. IVC measured at 2.0 cm with physiological collapse. A color flow and spectral Doppler study was performed and revealed: Mild aortic regurgitation. Peak aortic valve gradient of 22 mmHg and a mean of 13 mmHg. Aortic valve area 1.7 cm2 calculated by continuity equation. Mild mitral regurgitation. Normal left ventricular diastolic function. Mild tricuspid regurgitation. Tricuspid systolic velocities suggests peak right Subjective Cardiovascular: Reports: no symptoms Respiratory: Reports: no symptoms Gastrointestinal/Abdominal: Reports: no symptoms Genitourinary: Reports: no symptoms Subjective No acute events, no CP/SOB/METCALF no fevers Objective Last 24 Hour Vital Signs Date Time Temp Pulse Resp B/P (MAP) Pulse Ox O2 Delivery O2 Flow Rate FiO2 04/04/20 16:14 72 15 67/69 100 Simple Mask 6 04/04/20 15:59 70 13 160/69 100 Simple Mask 6 04/04/20 15:49 64 15 182/72 100 Simple Mask 6 04/04/20 15:39 63 14 181/78 100 Simple Mask 6 04/04/20 15:34 64 19 178/75 100 Simple Mask 6 04/04/20 15:30 58 16 100 04/04/20 15:29 98.0 67 19 180/72 100 Simple Mask 6 04/04/20 12:00 97.8 61 18 147/71 (96) 96 04/04/20 09:00 Room Air 9/16/20 08:00 97.3 58 18 114/75 (88) 98 04/04/20 04:00 97.3 55 18 120/67 (84) 98 04/03/20 23:51 96.9 56 21 129/65 (86) 96 04/03/20 21:00 Room Air 04/03/20 20:00 97.9 84 21 136/59 (84) 97 General Appearance: no apparent distress, alert EENT: PERRL/EOMI, normal ENT inspection, TMs normal, pharynx normal Neck: non-tender, normal alignment, supple Rhythm: NSR Cardiovascular: normal peripheral pulses, normal rate, regular rhythm Respiratory/Chest: chest wall non-tender, lungs clear, normal breath sounds Abdomen: normal bowel sounds, non tender, soft, no organomegaly Extremities: normal range of motion, non-tender, normal inspection, no calf tenderness, no swelling 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 normal, no motor/sensory deficits Intake and Output 0 04/03/20 04/04/20 19:00 07:00 Intake Total 170 ml 850 ml Output Total 1400 ml Balance -1230 ml 850 ml Intake Oral 120 ml 100 ml IV Total 50 ml 750 ml Output Urine Total 1400 ml # Voids 3 4 Laboratory Tests Test 04/04/20 05:40 Sodium Level 145 MMOL/L (136-145) Potassium Level 4.6 MMOL/L (3.5-5.1) Chloride Level 110 MMOL/L (98-107) H Carbon Dioxide Level 25 MMOL/L (21-32) Anion Gap 10 mmol/L (5-15) Blood Urea Nitrogen 12 mg/dL (7-18) Creatinine 1.3 MG/DL (0.55-1.30) Estimat Glomerular Filtration Rate 52.7 mL/min (>60) Glucose Level 104 MG/DL (74-106) Calcium Level 7.9 MG/DL (8.5-10.1) L Microbiology Date/Time Source Procedure Growth Status 04/03/20 10:50 Nasopharynx SARS-CoV-2 RdRp Gene Assay - Final Complete Filsoof,Juan Rolon MD Apr 04, 2020 16:58
--- NOTE | 2020-04-04 17:00 | NUR ---
NURSE NOTES: Received patient from FRANTZ López S/P TURBT with retrograde pyelogram. Patient observed to be awake, alert, and oriented. Verbally responsive. On 3L via NC. IV site located on RH gauge 22 asymptomatic, inplace and intact running D5 1/2 NS AT 75 ML/HR. Patient currently on CBI with NS until seen by Dr. Naqiv. Vitals stable at 143/75, hr 77, 02 100%, temp 97.7 and respiration 19. Patient's bed placed on lowest and locked position, call light placed within reach and will continue to monitor.
--- NOTE | 2020-04-04 19:20 | NUR ---
NURSE NOTES: Received report from raúl rush. patient is on bed, awake and verbally responsive. on nasal cannula @ 3lpm. no sob. denies any pain or discomfort at the moment. s/p TURBT with bladder retrograde pyelogram. cancino catheter 24 kiswahili with CBI. with right hand running d5 1/2 ns @ 75 ml/hr. IS at the bedside. per adri, " he's ambulatory with cane on the bedisde and he's able to drink water of 500 ml." reiterated to call and ask for assistance. call light and light button within easy reach. will continue plan of care.
--- NOTE | 2020-04-04 19:24 | NUR ---
NURSE HAND-OFF: Important Events on Shift:S/p TURBT with retrograde pyelogram Patient Status: stable Diet: clear liquid diet -> cardiac diet Pending Orders: n/a Pending Results/Labs:n/a Pending MD notification:n/a Latest Vital Signs: Temperature 98.1 , Pulse 71 , B/P 147 /76 , Respiratory Rate 20 , O2 SAT 99 , Nasal Cannula, O2 Flow Rate 3 . Vital Sign Comment: stable Latest Godinez Fall Score: 45 Fall Risk: High Risk Safety Measures: Call light Within Reach, Bed Alarm Zone 1, Side Rails Side Rails x2, Bed position Low and Locked. Fall Precautions: Yellow Socks Yellow Gown Door Sign Patient Fall Education Report given to FRANTZ Smith.
[2020-04-04] MEDS: Tamsulosin 0.4mg cap ORAL SCH (20:37)
[2020-04-04] MEDS: Hydromorphone 0.5mg/0.5ml inj IVP PRN (20:41)
[2020-04-05] VITALS: BP 111/73
[2020-04-05] MEDS: D5 1/2NS 1,000 ML IV SCH ×2 (01:01→15:22)
[2020-04-05 04:00] VITALS: BP 149/77
--- NOTE | 2020-04-05 06:49 | NUR ---
NURSE HAND-OFF: Important Events on Shift:s/p turbt; cbi monitoring;IS Patient Status:stable Diet: cardiac diet;(per md srinivasan to resume pre op orders) Pending Orders: Pending Results/Labs: Pending MD notification: Latest Vital Signs: Temperature 96.6 , Pulse 71 , B/P 159 /77 , Respiratory Rate 19 , O2 SAT 99 , Room Air, O2 Flow Rate 3 . Vital Sign Comment: Latest Godinez Fall Score: 45 Fall Risk: High Risk Safety Measures: Call light Within Reach, Bed Alarm Zone 1, Side Rails Side Rails x2, Bed position Low and Locked. Fall Precautions: Yellow Socks Yellow Gown Door Sign Patient Fall Education
[2020-04-05 07:29] LABS: CALCIUM 8.2 MG/DL (8.5-10.1); CREATININE 1.3 MG/DL (0.55-1.30); PHOSPHORUS 3.1 MG/DL (2.5-4.9); POTASSIUM 4.4 MMOL/L (3.5-5.1)
[2020-04-05 08:00] VITALS: BP 113/63
--- NOTE | 2020-04-05 08:02 | NUR ---
HAND-OFF: Report given to raúl sánchez.
--- NOTE | 2020-04-05 08:20 | NUR ---
NURSE NOTES: Patient awake, alert x4; on nasal cannula 3 liters, no sing of distress and shortness of breath; no sing of chest pain; IV Right-hand fluid running at 75cc; bladder irrigation running; side rails up x2, breaks engaged, bed at lowest position, call light within reach; will keep monitoring.
--- NOTE | 2020-04-05 08:22 | 48 Hour Post Anesthesia Eval ---
Post Anesthesia Evaluation Procedure: TURBT Date of Evaluation: Apr 05, 2020 Time of Evaluation: 08:20 Blood Pressure Systolic: 146 0: 72 Pulse Rate: 68 Respiratory Rate: 20 Temperature (Fahrenheit): 97.6 O2 Sat by Pulse Oximetry: 98 Airway: patent Nausea: No Vomiting: No Pain Intensity: 2 Hydration Status: adequate Cardiopulmonary Status: stable Mental Status/LOC: patient returned to baseline Follow-up Care/Observations: n/a Post-Anesthesia Complications: none Follow-up care needed: ready to discharge Dawson Matthew MD Apr 05, 2020 08:22
[2020-04-05] MEDS: carBAMazepine XR 200mg tab ORAL SCH (08:49)
--- NOTE | 2020-04-05 10:57 | Pulmonology Progress Note ---
Subjective Interval Events: S/p TURBT; has CBI ongoing Constitutional: Reports: no symptoms HEENT: Repors: no symptoms Respiratory: Reports: no symptoms Cardiovascular: Reports: no symptoms Gastrointestinal/Abdominal: Reports: no symptoms Allergies: Coded Allergies: No Known Allergies (Unverified , 04/03/20) Objective Last 24 Hour Vital Signs Date Time Temp Pulse Resp B/P (MAP) Pulse Ox O2 Delivery O2 Flow Rate FiO2 04/05/20 09:00 Room Air 04/05/20 08:49 67 113/63 04/05/20 08:22 68 20 98 04/05/20 08:00 97.2 67 18 113/63 (80) 98 04/05/20 04:30 159/77 04/05/20 04:00 96.6 71 19 149/77 (101) 99 04/05/20 00:00 96.8 72 19 111/73 (86) 100 04/04/20 21:11 98.1 04/04/20 21:00 Room Air 04/04/20 20:00 96.3 65 19 145/78 (100) 100 04/04/20 18:00 98.1 71 20 147/76 (99) 99 04/04/20 17:00 97.7 77 19 143/75 (97) 100 04/04/20 16:45 97.9 70 14 148/62 100 Nasal Cannula 3 04/04/20 16:29 71 14 158/65 100 Nasal Cannula 3 04/04/20 16:14 72 15 156/71 100 Simple Mask 6 04/04/20 15:59 70 13 160/69 100 Simple Mask 6 04/04/20 15:49 64 15 182/72 100 Simple Mask 6 04/04/20 15:39 63 14 181/78 100 Simple Mask 6 04/04/20 15:34 64 19 178/75 100 Simple Mask 6 04/04/20 15:30 58 16 100 04/04/20 15:29 98.0 67 19 180/72 100 Simple Mask 6 04/04/20 12:00 97.8 61 18 147/71 (96) 96 Intake and Output 04/04/20 04/05/20 19:00 07:00 Intake Total 1400 ml 675 ml Output Total 19593 ml 400 ml Balance -9300 ml 275 ml Intake Oral 500 ml 600 ml IV Total 900 ml 75 ml Output Urine Total 100 ml Estimated Blood Loss 100 ml Other 95884 ml 400 ml General Appearance: no acute distress HEENT: normocephalic Respiratory: chest wall non-tender, lungs clear Cardiovascular: normal peripheral pulses, normal rate Abdomen: normal bowel sounds Extremities: no cyanosis Microbiology Date/Time Source Procedure Growth Status 04/03/20 10:50 Nasopharynx SARS-CoV-2 RdRp Gene Assay - Final Complete Laboratory Tests 04/05/20 06:05: Sodium Level 138, Potassium Level 4.4, Chloride Level 104, Carbon Dioxide Level 23, Anion Gap 11, Blood Urea Nitrogen 12, Creatinine 1.3, Estimat Glomerular Filtration Rate 52.7, Glucose Level 128H, Calcium Level 8.2L, Phosphorus Level 3.1, Magnesium Level 1.9 Current Medications Medications (Trade) Dose Ordered Sig/Isaac Route PRN Reason Start Time Stop Time Status Last Admin Dose Admin Amlodipine Besylate (Norvasc) 10 mg DAILY ORAL 04/04/20 09:00 05/04/20 08:59 04/05/20 08:49 Carbamazepine (TEGretol XR) 200 mg DAILY ORAL 04/04/20 09:00 05/04/20 08:59 04/05/20 08:49 Clonidine HCl (Catapres Tab) 0.1 mg Q6H PRN ORAL hypertension 04/03/20 13:45 07/02/20 13:44 04/05/20 04:30 Dextrose/Sodium Chloride 1,000 ml @ 75 mls/hr [id number] IV 04/03/20 22:15 05/03/20 22:14 04/05/20 01:01 Hydromorphone HCl (Dilaudid) 0.5 mg Q4H PRN IVP For Pain 04/04/20 20:27 04/11/20 20:26 04/04/20 20:41 Tamsulosin HCl (Flomax) 0.4 mg BEDTIME ORAL 04/03/20 21:00 05/03/20 20:59 04/04/20 20:37 Assessment/Plan Assessment/Plan IMPRESSION: 1. Hypertension. 2. Diabetes mellitus. 3. Bladder CA with hematuria. 4. Left hilar mass. DISCUSSION: Continue IV fluids. Continue home medications. Check labs in the morning. For surgery todayS/p TURBT CBI continuing Discontinued any potassium containing products. Noted nephrology and cardiology evaluations Diane Ortiz Omar Syed MD Apr 05, 2020 10:57
[2020-04-05 12:00] VITALS: BP 101/58
--- NOTE | 2020-04-05 14:24 | Nephrology Progress Note ---
Assessment/Plan Plan #ABDIRAHMAN- due to pre-renal azotemia #hypernatremia #Hyperkalemia #HTN #DM #hematuria - continue IVF - flomax -amlodipine 10mg daily - clonidine prn - urology eval - plan for cystoscopy - monitor lytes - hold hctz - avoid nephrotoxins - monitor UOP - BG control - monitor BP time spent 65 min Subjective ROS Limited/Unobtainable: No Constitutional: Reports: weakness HEENT: Denies: no symptoms, eye pain, blurred vision, tearing, double vision, ear pain, ear discharge, nose pain, nose congestion, throat pain, throat swelling, mouth pain, mouth swelling, other Neurologic/Psychiatric: Denies: no symptoms, anxiety, depressed, emotional problems, headache, numbness, paresthesia, pre-existing deficit, seizure, tingling, tremors, weakness, other Subjective pain controlled labs reviewed Objective Objective Last 24 Hour Vital Signs Date Time Temp Pulse Resp B/P (MAP) Pulse Ox O2 Delivery O2 Flow Rate FiO2 04/05/20 12:00 97.7 63 18 101/58 (72) 98 04/05/20 09:00 Room Air 04/05/20 08:49 67 113/63 04/05/20 08:22 68 20 98 04/05/20 08:00 97.2 67 18 113/63 (80) 98 04/05/20 04:30 159/77 04/05/20 04:00 96.6 71 19 149/77 (101) 99 04/05/20 00:00 96.8 72 19 111/73 (86) 100 04/04/20 21:11 98.1 04/04/20 21:00 Room Air 04/04/20 20:00 96.3 65 19 145/78 (100) 100 04/04/20 18:00 98.1 71 20 147/76 (99) 99 04/04/20 17:00 97.7 77 19 143/75 (97) 100 04/04/20 16:45 97.9 70 14 148/62 100 Nasal Cannula 3 04/04/20 16:29 71 14 158/65 100 Nasal Cannula 3 04/04/20 16:14 72 15 156/71 100 Simple Mask 6 04/04/20 15:59 70 13 160/69 100 Simple Mask 6 9/16/20 15:49 64 15 182/72 100 Simple Mask 6 04/04/20 15:39 63 14 181/78 100 Simple Mask 6 04/04/20 15:34 64 19 178/75 100 Simple Mask 6 04/04/20 15:30 58 16 100 04/04/20 15:29 98.0 67 19 180/72 100 Simple Mask 6 Intake and Output 04/04/20 04/05/20 19:00 07:00 Intake Total 1400 ml 675 ml Output Total 26369 ml 400 ml Balance -9300 ml 275 ml Intake Oral 500 ml 600 ml IV Total 900 ml 75 ml Output Urine Total 100 ml Estimated Blood Loss 100 ml Other 68898 ml 400 ml Laboratory Tests 04/05/20 06:05: Sodium Level 138, Potassium Level 4.4, Chloride Level 104, Carbon Dioxide Level 23, Anion Gap 11, Blood Urea Nitrogen 12, Creatinine 1.3, Estimat Glomerular Filtration Rate 52.7, Glucose Level 128H, Calcium Level 8.2L, Phosphorus Level 3.1, Magnesium Level 1.9 Height (Feet): 5 Height (Inches): 6.00 Weight (Pounds): 143 Ander Baxter M.D. Apr 05, 2020 14:24
--- NOTE | 2020-04-05 14:25 | Cardiology Progress Note ---
Assessment/Plan Status: stable Assessment/Plan Assessment/Plan Status: stable Assessment/Plan: Assessment: 1. Hypertension. 2. Diabetes mellitus. 3. Bladder CA with hematuria. 4. Left hilar mass. 5. Hyperkalemia/hypernatremia Plan: 1) DASH diet 2) IV fulids 3) Monitor electrolytes 4) Urology evaluation for hematuria 5) Echocardiogram for risk stratification with normal LV function 6) Monitor electrolytes and kidney function 7) Resume home anti hypertensives Technically difficult study due to poor acoustic windows. Study quality precludes accurate assessment of regional wall motion. Normal left ventricular chamber size, systolic function and wall motion to extent visualized. Left ventricular ejection fraction estimated to be 65%. No evidence of left ventricular hypertrophy. Anterior Echo-free space, may be due to pericardial fat or effusion. All other cardiac chamber sizes are within normal limits. Moderate focal aortic valve sclerosis with reduced cusp excursion. Thickened mitral valve leaflets with normal excursion. Mitral annulus and aortic root calcification. Pulmonic valve not well visualized. Normal tricuspid valve structure. IVC measured at 2.0 cm with physiological collapse. A color flow and spectral Doppler study was performed and revealed: Mild aortic regurgitation. Peak aortic valve gradient of 22 mmHg and a mean of 13 mmHg. Aortic valve area 1.7 cm2 calculated by continuity equation. Mild mitral regurgitation. Normal left ventricular diastolic function. Mild tricuspid regurgitation. Tricuspid systolic velocities suggests peak right Subjective Subjective COVERAGE FOR TOLUIE No acute events, no CP/SOB/METCALF no fevers Objective Last 24 Hour Vital Signs Date Time Temp Pulse Resp B/P (MAP) Pulse Ox O2 Delivery O2 Flow Rate FiO2 04/05/20 12:00 97.7 63 18 101/58 (72) 98 04/05/20 09:00 Room Air 04/05/20 08:49 67 113/63 04/05/20 08:22 68 20 98 04/05/20 08:00 97.2 67 18 113/63 (80) 98 04/05/20 04:30 159/77 04/05/20 04:00 96.6 71 19 149/77 (101) 99 04/05/20 00:00 96.8 72 19 111/73 (86) 100 04/04/20 21:11 98.1 04/04/20 21:00 Room Air 04/04/20 20:00 96.3 65 19 145/78 (100) 100 04/04/20 18:00 98.1 71 20 147/76 (99) 99 04/04/20 17:00 97.7 77 19 143/75 (97) 100 04/04/20 16:45 97.9 70 14 148/62 100 Nasal Cannula 3 04/04/20 16:29 71 14 158/65 100 Nasal Cannula 3 04/04/20 16:14 72 15 156/71 100 Simple Mask 6 04/04/20 15:59 70 13 160/69 100 Simple Mask 6 04/04/20 15:49 64 15 182/72 100 Simple Mask 6 04/04/20 15:39 63 14 181/78 100 Simple Mask 6 04/04/20 15:34 64 19 178/75 100 Simple Mask 6 04/04/20 15:30 58 16 100 04/04/20 15:29 98.0 67 19 180/72 100 Simple Mask 6 General Appearance: no apparent distress, alert EENT: PERRL/EOMI, normal ENT inspection, TMs normal, pharynx normal Neck: non-tender, normal alignment, supple Rhythm: NSR Cardiovascular: normal peripheral pulses, normal rate, regular rhythm Respiratory/Chest: chest wall non-tender, lungs clear, normal breath sounds Abdomen: normal bowel sounds, non tender, soft, no organomegaly, no mass Extremities: normal range of motion, non-tender, normal inspection 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, no motor/sensory deficits Intake and Output 04/04/20 04/05/20 19:00 07:00 Intake Total 1400 ml 675 ml Output Total 65233 ml 400 ml Balance -9300 ml 275 ml Intake Oral 500 ml 600 ml IV Total 900 ml 75 ml Output Urine Total 100 ml Estimated Blood Loss 100 ml Other 11488 ml 400 ml Laboratory Tests Test 04/05/20 06:05 Sodium Level 138 MMOL/L (136-145) Potassium Level 4.4 MMOL/L (3.5-5.1) Chloride Level 104 MMOL/L (98-107) Carbon Dioxide Level 23 MMOL/L (21-32) Anion Gap 11 mmol/L (5-15) Blood Urea Nitrogen 12 mg/dL (7-18) Creatinine 1.3 MG/DL (0.55-1.30) Estimat Glomerular Filtration Rate 52.7 mL/min (>60) Glucose Level 128 MG/DL (74-106) H Calcium Level 8.2 MG/DL (8.5-10.1) L Phosphorus Level 3.1 MG/DL (2.5-4.9) Magnesium Level 1.9 MG/DL (1.8-2.4) Microbiology Date/Time Source Procedure Growth Status 04/03/20 10:50 Nasopharynx SARS-CoV-2 RdRp Gene Assay - Final Complete Juan Conti MD Apr 05, 2020 14:25
[2020-04-05 16:00] VITALS: BP 106/64
--- NOTE | 2020-04-05 19:06 | NUR ---
HAND-OFF: Report given to FRANTZ Silverman. IV fluid running; Irrigation fluid running; endorsed plan of care to the incoming nurse;
--- NOTE | 2020-04-05 19:30 | NUR ---
NURSE NOTES: Received report from raúl sánchez. patient is on bed. awake and verbally responsive. with cancino catheter and on going CBI. on room air. no sob. with iv line on the right hand running d5 1/2 ns @ 75 ml/hr. denies any pain or discomfort. call light and light button within easy reach. bed locked and in lowest position. will continue plan of care.
[2020-04-05 20:00] VITALS: BP 116/67
[2020-04-05] MEDS: Tamsulosin 0.4mg cap ORAL SCH (20:21)
[2020-04-05] MEDS: Hydromorphone 0.5mg/0.5ml inj IVP PRN (20:22)
--- NOTE | 2020-04-05 20:30 | NUR ---
NURSE NOTES: family came and visit the patient. educated regarding the visiting hours protocol. family verbalized understanding.
[2020-04-06] VITALS: BP 120/61
[2020-04-06] MEDS: D5 1/2NS 1,000 ML IV SCH (03:25)
[2020-04-06 04:00] VITALS: BP 100/61
--- NOTE | 2020-04-06 07:17 | NUR ---
HAND-OFF: Report given to raúl saunders.
[2020-04-06 07:44] LABS: BASOPHILS % (AUTO) 0.6 % (0.0-2.0); EOSINOPHILS % (AUTO) 0.8 % (0.0-3.0); LYMPHOCYTES % (AUTO) 15.9 % (20.0-45.0); MEAN CORPUSCULAR VOLUME 86 FL (80-99); NEUTROPHILS % (AUTO) 75.7 % (45.0-75.0); PLATELET COUNT 229 K/UL (150-450); RED CELL DISTRIBUTION WIDTH 11.8 % (11.6-14.8); WHITE BLOOD COUNT 9.2 K/UL (4.8-10.8)
[2020-04-06 08:00] VITALS: BP 120/57
[2020-04-06 08:02] LABS: POTASSIUM 4.1 MMOL/L (3.5-5.1)
--- NOTE | 2020-04-06 08:03 | NUR ---
NURSE NOTES: pt is in the bed alert and wake. respiration is even and unlabored on room air. Denies any pain and discomfort. Continuous bladder irrigation inplace and draining. no hematuria and sediments noted. HOB elevated, no acute distress noted at this time, will continue to monitor.
[2020-04-06 08:15] LABS: CALCIUM 8.1 MG/DL (8.5-10.1); CREATININE 1.4 MG/DL (0.55-1.30)
[2020-04-06] MEDS: carBAMazepine XR 200mg tab ORAL SCH (08:58)
--- NOTE | 2020-04-06 10:53 | Pulmonology Progress Note ---
Subjective ROS Limited/Unobtainable: No Interval Events: S/p TURBT; Hgb 11 Constitutional: Reports: no symptoms HEENT: Repors: no symptoms Respiratory: Reports: no symptoms Cardiovascular: Reports: no symptoms Gastrointestinal/Abdominal: Reports: no symptoms Allergies: Coded Allergies: No Known Allergies (Unverified , 04/03/20) Objective Last 24 Hour Vital Signs Date Time Temp Pulse Resp B/P (MAP) Pulse Ox O2 Delivery O2 Flow Rate FiO2 04/06/20 08:58 67 120/57 04/06/20 08:00 98.6 67 18 120/57 (78) 95 04/06/20 04:00 97.8 67 19 100/61 (74) 98 04/06/20 00:00 98.0 66 19 120/61 (80) 99 04/05/20 21:00 Room Air 04/05/20 20:52 98.0 04/05/20 20:00 98.1 72 19 116/67 (83) 98 04/05/20 16:00 98.0 70 18 106/64 (78) 98 04/05/20 12:00 97.7 63 18 101/58 (72) 98 Intake and Output 04/05/20 04/06/20 19:00 07:00 Intake Total 1625 ml 825 ml Output Total 9550 ml 450 ml Balance -7925 ml 375 ml Intake Oral 800 ml IV Total 825 ml 825 ml Output Urine Total 450 ml Other 9550 ml # Voids 1 General Appearance: no acute distress HEENT: normocephalic Respiratory: chest wall non-tender, lungs clear Cardiovascular: normal peripheral pulses, normal rate Abdomen: normal bowel sounds Extremities: no cyanosis Laboratory Tests 04/06/20 05:45: White Blood Count 9.2, Red Blood Count 3.70L, Hemoglobin 11.0L, Hematocrit 32.0L , Mean Corpuscular Volume 86, Mean Corpuscular Hemoglobin 29.6, Mean Corpuscular Hemoglobin Concent 34.3, Red Cell Distribution Width 11.8, Platelet Count 229, Mean Platelet Volume 6.0L, Neutrophils (%) (Auto) 75.7H, Lymphocytes (%) (Auto) 15.9L, Monocytes (%) (Auto) 7.0, Eosinophils (%) (Auto) 0.8, Basophils (%) (Auto) 0.6, Sodium Level 141, Potassium Level 4.1, Chloride Level 106, Carbon Dioxide Level 25, Anion Gap 10, Blood Urea Nitrogen 14, Creatinine 1.4H, Estimat Glomerular Filtration Rate 48.4, Glucose Level 93, Calcium Level 8.1L Current Medications Medications (Trade) Dose Ordered Sig/Isaac Route PRN Reason Start Time Stop Time Status Last Admin Dose Admin Amlodipine Besylate (Norvasc) 10 mg DAILY ORAL 04/04/20 09:00 05/04/20 08:59 04/06/20 08:58 Carbamazepine (TEGretol XR) 200 mg DAILY ORAL 04/04/20 09:00 05/04/20 08:59 04/06/20 08:58 Clonidine HCl (Catapres Tab) 0.1 mg Q6H PRN ORAL hypertension 04/03/20 13:45 07/02/20 13:44 04/05/20 04:30 Dextrose/Sodium Chloride 1,000 ml @ 75 mls/hr [id number] IV 04/03/20 22:15 05/03/20 22:14 04/06/20 03:25 Hydromorphone HCl (Dilaudid) 0.5 mg Q4H PRN IVP For Pain 04/04/20 20:27 04/11/20 20:26 04/05/20 20:22 Tamsulosin HCl (Flomax) 0.4 mg BEDTIME ORAL 04/03/20 21:00 05/03/20 20:59 04/05/20 20:21 Assessment/Plan Assessment/Plan IMPRESSION: 1. Hypertension. 2. Diabetes mellitus. 3. Bladder CA with hematuria. 4. Left hilar mass. DISCUSSION: Continue IV fluids. Continue home medications. Check labs in the morning. S/p TURBT CBI continuing Discontinued any potassium containing products. Noted nephrology and cardiology evaluations Diane Ortiz Omar Syed MD Apr 06, 2020 10:53
[2020-04-06 12:00] VITALS: BP 125/60
[2020-04-06] MEDS ORDERED: NORVASC10 MG ORAL (12:00)
[2020-04-06] MEDS ORDERED: TEGRETOL XR200 MG ORAL (12:00)
--- NOTE | 2020-04-06 12:47 | NUR ---
NURSE NOTES: Removed cancino catheter, explained to patient and that MD states he must be able to void before discharge.
--- NOTE | 2020-04-06 13:07 | Cardiology Progress Note ---
Assessment/Plan Status: stable Assessment/Plan Assessment/Plan Status: stable Assessment/Plan: Assessment: 1. Hypertension. 2. Diabetes mellitus. 3. Bladder CA with hematuria. 4. Left hilar mass. 5. Hyperkalemia/hypernatremia Plan: 1) DASH diet 2) IV fulids 3) Monitor electrolytes 4) Urology evaluation for hematuria 5) Echocardiogram for risk stratification with normal LV function 6) Monitor electrolytes and kidney function 7) Resume home anti hypertensives Technically difficult study due to poor acoustic windows. Study quality precludes accurate assessment of regional wall motion. Normal left ventricular chamber size, systolic function and wall motion to extent visualized. Left ventricular ejection fraction estimated to be 65%. No evidence of left ventricular hypertrophy. Anterior Echo-free space, may be due to pericardial fat or effusion. All other cardiac chamber sizes are within normal limits. Moderate focal aortic valve sclerosis with reduced cusp excursion. Thickened mitral valve leaflets with normal excursion. Mitral annulus and aortic root calcification. Pulmonic valve not well visualized. Normal tricuspid valve structure. IVC measured at 2.0 cm with physiological collapse. A color flow and spectral Doppler study was performed and revealed: Mild aortic regurgitation. Peak aortic valve gradient of 22 mmHg and a mean of 13 mmHg. Aortic valve area 1.7 cm2 calculated by continuity equation. Mild mitral regurgitation. Normal left ventricular diastolic function. Mild tricuspid regurgitation. Tricuspid systolic velocities suggests peak right Subjective Cardiovascular: Reports: no symptoms Respiratory: Reports: no symptoms Gastrointestinal/Abdominal: Reports: no symptoms Genitourinary: Reports: no symptoms Subjective COVERAGE FOR TOLUIE No acute events, no CP/SOB/METCALF no fevers Objective Last 24 Hour Vital Signs Date Time Temp Pulse Resp B/P (MAP) Pulse Ox O2 Delivery O2 Flow Rate FiO2 04/06/20 09:00 Room Air 04/06/20 08:58 67 120/57 04/06/20 08:00 98.6 67 18 120/57 (78) 95 04/06/20 04:00 97.8 67 19 100/61 (74) 98 04/06/20 00:00 98.0 66 19 120/61 (80) 99 04/05/20 21:00 Room Air 04/05/20 20:52 98.0 04/05/20 20:00 98.1 72 19 116/67 (83) 98 04/05/20 16:00 98.0 70 18 106/64 (78) 98 General Appearance: no apparent distress, alert EENT: normal ENT inspection, TMs normal Neck: non-tender, normal alignment, supple, normal inspection, no JVD Rhythm: NSR Cardiovascular: normal peripheral pulses, normal rate Respiratory/Chest: chest wall non-tender, lungs clear, normal breath sounds Abdomen: normal bowel sounds, non tender, soft Extremities: normal range of motion, non-tender, normal inspection 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, no motor/sensory deficits Intake and Output 04/05/20 04/06/20 19:00 07:00 Intake Total 1625 ml 825 ml Output Total 9550 ml 450 ml Balance -7925 ml 375 ml Intake Oral 800 ml IV Total 825 ml 825 ml Output Urine Total 450 ml Other 9550 ml # Voids 1 Laboratory Tests Test 04/06/20 05:45 White Blood Count 9.2 K/UL (4.8-10.8) Red Blood Count 3.70 M/UL (4.70-6.10) L Hemoglobin 11.0 G/DL (14.2-18.0) L Hematocrit 32.0 % (42.0-52.0) L Mean Corpuscular Volume 86 FL (80-99) Mean Corpuscular Hemoglobin 29.6 PG (27.0-31.0) Mean Corpuscular Hemoglobin Concent 34.3 G/DL (32.0-36.0) Red Cell Distribution Width 11.8 % (11.6-14.8) Platelet Count 229 K/UL (150-450) Mean Platelet Volume 6.0 FL (6.5-10.1) L Neutrophils (%) (Auto) 75.7 % (45.0-75.0) H Lymphocytes (%) (Auto) 15.9 % (20.0-45.0) L Monocytes (%) (Auto) 7.0 % (1.0-10.0) Eosinophils (%) (Auto) 0.8 % (0.0-3.0) Basophils (%) (Auto) 0.6 % (0.0-2.0) Sodium Level 141 MMOL/L (136-145) Potassium Level 4.1 MMOL/L (3.5-5.1) Chloride Level 106 MMOL/L (98-107) Carbon Dioxide Level 25 MMOL/L (21-32) Anion Gap 10 mmol/L (5-15) Blood Urea Nitrogen 14 mg/dL (7-18) Creatinine 1.4 MG/DL (0.55-1.30) H Estimat Glomerular Filtration Rate 48.4 mL/min (>60) Glucose Level 93 MG/DL (74-106) Calcium Level 8.1 MG/DL (8.5-10.1) L Juan Conti MD Apr 06, 2020 13:07
--- NOTE | 2020-04-06 15:48 | NUR ---
NURSE NOTES: Patient is discharged home without any signs of distress. Patient is alert and awake. A&O X 4. verbally responsive. Respiration is even and unlabored on room air. Patient voided x 2 in the urinal. Urine is pale yellow. Denies any bladder pain and discomfort. Patient has belongings; inventory paper signed. Patient did not bring home medications. Skin is clean and intact. Patient is provided with after-care instructions, provided medication teaching, and to follow-up with any MD's appointment, patient verbalized understanding of after-care instructions. IV site and wrist band removed. Patient is discharged home in company of her , Alejandra, via a private vehicle
--- NOTE | 2020-04-08 15:15 | Discharge Summary ---
Discharge Summary Discharge Summary _ DATE OF ADMISSION: 04/03/2020 DATE OF DISCHARGE: 04/06/2020 DISCHARGED BY: Dr. Bentley Ortiz CONSULTANTS: Dr. Juan Naqvi BRIEF HOSPITAL COURSE: Patient is an 84-year-old male, who is a poor historian and speaks only Monegasque. He presented to the hospital due to complaints of ongoing hematuria. He has a procedure scheduled in the near future for resection, however, he was urgently evaluated because of an ongoing hematuria. He has medical history significant for diabetes mellitus, hypertension, and bladder carcinoma. On evaluation at ED, he was noted to have elevated BP 162/64, heart rate 64. He was afebrile and was saturating 96% on room air. Blood work did not show any leukocytosis. Hemoglobin and hematocrit were stable. Sodium level 148. Potassium 5.7. Chloride 111. BUN was 11 and creatinine 1.5. GFR 44. Rapid COVID testing was negative chest x-ray showed possible mass/opacity on the left upper lobe. He was given IV hydration. Home medications were continued. He was given amlodipine 10 mg daily. He was placed on clonidine as needed. Echocardiogram showed EF of 65%. He was cleared for surgery. On 04/04/2020, he underwent TURBT. He tolerated procedure well. Surgery was uneventful. Postoperatively he was placed on continuous bladder irrigation. Urine eventually cleared. Labs were stable. He was afebrile. Patient was cleared for discharge home. FINAL DIAGNOSES: Bladder CA with hematuria status post TURBT Acute kidney injury due to prerenal azotemia Hypertension Diabetes mellitus Hyperkalemia Hypernatremia DISPOSITION: Patient was discharged home. DISCHARGE MEDICATIONS: Refer to Discharge Medication List. DISCHARGE INSTRUCTIONS: Follow-up in a week. I have been assigned to complete a discharge summary on this account, I was not involved with the patient's management.--MIMA Burnham Jacqueline Robles NP Apr 08, 2020 15:15
--- NOTE | 2020-04-10 09:00 | Operative Note - Dictated ---
DATE OF OPERATION: 04/04/2020 PREOPERATIVE DIAGNOSIS: Multiple bladder cancer. POSTOPERATIVE DIAGNOSIS: Multiple bladder cancer. OPERATION: Transurethral resection of bladder tumor, bilateral retrograde pyelogram. 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 FINDINGS: Multiple tumor sites at the bladder neck and the trigone. INDICATIONS FOR SURGERY: The patient presented with hematuria and cystoscopy showed a bladder tumor. Metastatic workup was negative, which did not show . Treatment options were explained to the patient in great length including all potential complications. He signed the consent. DESCRIPTION OF PROCEDURE: He was brought to the operating room, placed in the lithotomy position, prepped and draped in standard fashion. Under general anesthesia, cystoscope was introduced. Bilateral retrograde pyelogram was performed. Tumor was found in the right and left side of the urethral opening close to the prostate in the trigone. Cystoscope was exchanged to a resectoscope. Tumor was resected at 11 o'clock, 1 o'clock, and 5 o'clock and sent for pathologic examination. Tumor beds were fulgurated. Casarez catheter 24 three-way was placed and left indwelling. The patient tolerated the procedure well. No evidence of complications. Pramod Naqvi M.D. DR: Mervin JOB#: [id number] CC:
== END 2020-04-06 15:44 | disposition home or self-care (01) | DRG 669 ==
LOC: EMR 10:20 → 4E 11:34 → EDBEDREQ 11:49
PROC: BT14YZZ Fluoroscopy of Kidneys, Ureters and Bladder using Other Contrast (ICD-10-PCS; principal; 2020-04-04 12:15)
PROC: 0TBB8ZZ Excision of Bladder, Via Natural or Artificial Opening Endoscopic (ICD-10-PCS; principal; 2020-04-04 12:15)
DX: C67.9 Malignant neoplasm of bladder, unspecified (principal); E87.0 Hyperosmolality and hypernatremia; N17.9 Acute kidney failure, unspecified; E86.0 Dehydration; I10 Essential (primary) hypertension; E11.9 Type 2 diabetes mellitus without complications; R31.9 Hematuria, unspecified; J98.4 Other disorders of lung; I35.1 Nonrheumatic aortic (valve) insufficiency; I36.1 Nonrheumatic tricuspid (valve) insufficiency; E87.5 Hyperkalemia
CPT/HCPCS: 36415; 71045; 74420; 76000; 80048; 80053; 83735; 84100; 85025; 85610; 85730; 86850; 86900; 86901; 93005; 93306; 94003; 94150; 96360; 99285; J2250; J2405; J2710; U0002